=== PATIENT | male | born 1975 | race Caucasian/White ===

== ENCOUNTER 2023-06-06 18:38 | Inpatient (IN) | payer OTHER ==
[~2023-06-06] VITALS: Ht 167.6 cm; Wt 117.9 kg
[~2023-06-06 18:38] MED LIST: ALBU90OI INH; ONDA4ODT MM; OXYACE5T PO; RXONDA4ODT MM
[2023-06-06 19:21] LABS: BASOPHILS ABSOLUTE AUTO 0.09 K/mm3 (0.00-0.23); BASOPHILS PERCENT AUTO 1 % (0-2); EOSINOPHILS ABSOLUTE AUTO 0.36 K/mm3 (0.00-0.68); EOSINOPHILS PERCENT AUTO 2 % (0-6); IMMATURE GRAN ABSOLUTE AUTO 0.11 K/mm3 (0.00-0.10); IMMATURE GRAN PERCENT AUTO 1 % (0-1); LYMPHOCYTES ABSOLUTE AUTO 2.69 K/mm3 (0.84-5.20); LYMPHOCYTES PERCENT AUTO 15 % (21-46); MONOCYTES ABSOLUTE AUTO 0.99 K/mm3 (0.16-1.47); MONOCYTES PERCENT AUTO 5 % (4-13); Mean Corpuscular HGB Conc 34.7 g/dL (31.5-36.5); Mean Corpuscular Volume 92 fL (80-100); NEUTROPHILS ABSOLUTE AUTO 14.09 K/mm3 (1.96-9.15); NEUTROPHILS PERCENT AUTO 77 % (41-73); Platelet Count 259 K/mm3 (150-400); RDW Coefficient Variation 12.7 % (11.7-14.2); Red Blood Cell Count 5.31 M/mm3 (4.30-5.90); White Blood Cell Count 18.33 K/mm3 (4.00-11.30)
[2023-06-06 19:36] LABS: Albumin, Blood 4.1 g/dL (3.4-5.0); Bilirubin, Total 5.3 mg/dL (0.1-1.0); Bun/Creatinine Ratio 11.1 (12.0-20.0); Calcium, Blood 9.4 mg/dL (8.5-10.1); Creatinine, Blood 1.08 mg/dL (0.60-1.20); Potassium, Blood 3.8 mmol/L (3.5-5.5); Total Protein, Blood 8.1 g/dL (6.4-8.2)
--- NOTE | 2023-06-06 23:22 | NUR ---
ADMIT NOTE PT BROUGHT TO UNIT BY GERALD. TRANFERRED TO HOSPITAL BED INDEPENDENTLY. OREIENTED TO CALL LIGHT AND ROOM. EDUCATED ON FIRE PREVENTION AND SAFETY. ONE BAG OF PERSONAL BELONGINGS. GLASSES ON BEDSIDE TABLE. AT BEDSIDE BUT HEADING HOME SOON. CALL LIGHT IN REACH
[2023-06-06 23:35] VITALS: BP 140/95
[2023-06-07 02:14] LABS: BASOPHILS ABSOLUTE AUTO 0.03 K/mm3 (0.00-0.23); BASOPHILS PERCENT AUTO 0 % (0-2); EOSINOPHILS ABSOLUTE AUTO 0.01 K/mm3 (0.00-0.68); EOSINOPHILS PERCENT AUTO 0 % (0-6); Hematocrit 48.3 % (37.0-53.0); Hemoglobin 16.6 g/dL (13.5-17.5); IMMATURE GRAN ABSOLUTE AUTO 0.05 K/mm3 (0.00-0.10); IMMATURE GRAN PERCENT AUTO 0 % (0-1); LYMPHOCYTES ABSOLUTE AUTO 0.48 K/mm3 (0.84-5.20); LYMPHOCYTES PERCENT AUTO 4 % (21-46); MONOCYTES ABSOLUTE AUTO 0.67 K/mm3 (0.16-1.47); MONOCYTES PERCENT AUTO 5 % (4-13); Mean Corpuscular HGB 31.8 pg (26.0-34.0); Mean Corpuscular HGB Conc 34.4 g/dL (31.5-36.5); Mean Corpuscular Volume 93 fL (80-100); Mean Platelet Volume 8.9 fL (9.1-12.4); NEUTROPHILS ABSOLUTE AUTO 12.27 K/mm3 (1.96-9.15); NEUTROPHILS PERCENT AUTO 91 % (41-73); Platelet Count 194 K/mm3 (150-400); RDW Coefficient Variation 12.9 % (11.7-14.2); RDW Standard Deviation 43.5 fL (35.1-46.3); Red Blood Cell Count 5.22 M/mm3 (4.30-5.90); White Blood Cell Count 13.51 K/mm3 (4.00-11.30)
[2023-06-07 02:23] LABS: International Normalized Ratio 1.09; Prothrombin Time Results 11.4 Sec (9.7-11.5)
[2023-06-07 02:26] LABS: CHOL/HDL RATIO 7.2; Cholesterol 186 mg/dL (50-200); HDL Cholesterol 26 mg/dL (>39); LDL/HDL RATIO 4.9; Low Density Lipoprotein Chol 128 mg/dL (0-110); Triglycerides 160 mg/dL (30-160); Very Low Density Lipoprot Chol 32 mg/dL (6-32)
[2023-06-07 02:38] LABS: Albumin, Blood 3.6 g/dL (3.4-5.0); Albumin/Globulin Ratio 0.9 (0.8-1.8); Bilirubin, Total 2.1 mg/dL (0.1-1.0); Bun/Creatinine Ratio 13.5 (12.0-20.0); Calcium, Blood 8.1 mg/dL (8.5-10.1); Creatinine, Blood 0.97 mg/dL (0.60-1.20); Globulin, Blood 3.8 g/dL (2.2-4.0); Potassium, Blood 5.5 mmol/L (3.5-5.5); Total Protein, Blood 7.4 g/dL (6.4-8.2)
--- NOTE | 2023-06-07 03:25 | NUR ---
SHIFT SUMMARY PT A&O X4, COOPERATIVE WITH CARE. AT BEDSIDE AT ADMIT. PT COMPLAINING OF RUQ ABDOMINAL PAIN--MEDICATED PER EMAR. CURRENTLY NPO. FAXED MRI PAPERWORK TO IMAGING. SBA TO BATHROOM DUE TO LINES. CURRENTLY ON 2L VIA NC. NS INFUISING AT 75 ML/HR. MEDICATED FOR NAUSEA. BED KEPT IN LOWEST POSITION WITH CALL LIGHT WITHIN REACH. WILL CONTINUE TO MONITOR UNTIL END OF SHIFT.
--- NOTE | 2023-06-07 04:50 | NUR ---
PT JUST HAD AN EPISODE OG NAUSEA AND VOMITING. ALREADY GAVE NAUSEA MEDS PER EMAR. WILL NOTIFY
[2023-06-07 04:55] VITALS: BP 163/112
[2023-06-07 06:04] VITALS: BP 143/96
[2023-06-07 07:38] VITALS: BP 145/101
[2023-06-07 16:31] VITALS: BP 137/99
--- NOTE | 2023-06-07 17:26 | NUR ---
SHIFT SUMMARY: PT IS A 47 YEAR OLD MALE HERE FOR ACUTE G[place]STONE PANCREATITIS. HE IS HERE RECEIVING PAIN MANAGEMENT, IV FLUIDS, NPO BESIDES FOR WATER AND ICE CHIPS, AND ANTIBIOTICS FOR TREATMENT UNTIL HE IS ABLE TO HAVE SURGERY. SEE SURGICAL CONSULTATION NOTE FOR MORE DETAILS. HE IS PLEASANT AND COOPERATIVE AND INDEPENDENT IN THE ROOM. HE USES HIS CALL LIGHT APPROPRIATELY. HE IS GETTING SUPPLEMENTAL OXYGEN AT 2 LITERS DUE TO OXYGEN DESATURATION WHEN HE FALLS ASLEEP AND IS BEING MONTIOR WITH CONTINUE PULSE OXIMETRY. I DID D/C PATIENT'S OXYGEN TODAY AFTER HE RETURNED FROM MRI, BUT HAD TO PUT IT BACK ON WHEN IT GOT TO 88% WHILE HE WAS SLEEPING. PATIENT'S STATES THAT DECREASED OXYGEN SATURATION IS A KNOWN ISSUE WHEN HE SLEEPS. HE HAS BEEN TOLERATING WATER AND ICE CHIPS ONCE ORDER HAS BEEN PLACED. NO VOMITING THIS AFTERNOON. WHEN PATIENT DOES VOMITING IT IS SMALL AMOUNTS OF BILE. PT REPORTS NO BOWEL MOVEMENTS TODAY.
[2023-06-07 17:41] VITALS: BP 126/96
--- NOTE | 2023-06-07 18:07 | NUR ---
TELEMETRY APPLIED PATIENT RUNNING SINUS TACH AT 130. PATIENT REPORTS PAIN 5/10 WILL ADIMINSTER PAIN MEDICATION
[2023-06-07 20:01] VITALS: BP 129/86
[2023-06-08 03:21] VITALS: BP 130/100
--- NOTE | 2023-06-08 04:33 | NUR ---
SHIFT SUMMARY EV WAS ALERT AND FULLY ORIENTED AT THE START OF SHIFT. HE IS PLEASANT AND COOPERATIVE, WITH FAMILY AT TIME OF ASSESSMENT. PT C/O OF LOWER ABD PAIN AND NAUSEA, MEDICATED PER EMAR. PER SHIFT REPORT PT BECAME TACHICARDIC TOWARDS THE END OF DAY SHIFT AND TELEMETRY WAS INITIATED. PT HOVERS AROUND 140BPM WHILE AWAKE, 110'S-120'S WHILE RESTING AND UP TO 160'S WITH ACTIVITY, PT DENIES C/P/PRESSURE, OR INCREASING SOB, AND STATES THAT HE DOESN'T FEEL LIKE HIS HEART IS RACING. PT RECIEVING 2L O2 VIA NC AND SATTING ABOVE 90%. NO ACUTE EVENTS TONIGHT, PT RESTING IN BED AT A LOW POSITION WITH THE CALL LIGHT IN REACH, WHICH HE USES APPROPRIATELY.
[2023-06-08 05:35] LABS: BASOPHILS PERCENT AUTO 0 % (0-2); EOSINOPHILS PERCENT AUTO 0 % (0-6); Hematocrit 45.5 % (37.0-53.0); Hemoglobin 15.5 g/dL (13.5-17.5); IMMATURE GRAN ABSOLUTE AUTO 0.29 K/mm3 (0.00-0.10); IMMATURE GRAN PERCENT AUTO 1 % (0-1); LYMPHOCYTES ABSOLUTE AUTO 0.65 K/mm3 (0.84-5.20); LYMPHOCYTES PERCENT AUTO 3 % (21-46); MONOCYTES ABSOLUTE AUTO 1.82 K/mm3 (0.16-1.47); MONOCYTES PERCENT AUTO 8 % (4-13); Mean Corpuscular HGB 32.2 pg (26.0-34.0); Mean Corpuscular HGB Conc 34.1 g/dL (31.5-36.5); Mean Corpuscular Volume 94 fL (80-100); Mean Platelet Volume 8.8 fL (9.1-12.4); NEUTROPHILS ABSOLUTE AUTO 21.29 K/mm3 (1.96-9.15); NEUTROPHILS PERCENT AUTO 88 % (41-73); Platelet Count 142 K/mm3 (150-400); RDW Standard Deviation 45.3 fL (35.1-46.3); Red Blood Cell Count 4.82 M/mm3 (4.30-5.90); White Blood Cell Count 24.15 K/mm3 (4.00-11.30)
[2023-06-08 06:32] LABS: Albumin, Blood 2.6 g/dL (3.4-5.0); Albumin/Globulin Ratio 0.8 (0.8-1.8); Bilirubin, Total 8.2 mg/dL (0.1-1.0); Bun/Creatinine Ratio 21.8 (12.0-20.0); Calcium, Blood 7.4 mg/dL (8.5-10.1); Creatinine, Blood 1.24 mg/dL (0.60-1.20); Globulin, Blood 3.3 g/dL (2.2-4.0); Potassium, Blood 4.9 mmol/L (3.5-5.5); Total Protein, Blood 5.9 g/dL (6.4-8.2)
[2023-06-08 07:32] VITALS: BP 145/88
--- NOTE | 2023-06-08 18:53 | NUR ---
SHIFT SUMMARY: PATIENT A/OX4, CALM, PLEASANT, COOPERATIVE c CARE AND USES CALL LIGHT APPROPRIATELY. PATIENT DENIES CP/PRESSURE, SOB, AND DIZZINESS. PATIENT ON TELE ST 110'S-120'S BPM RESTING IN BED c AMBULATIONS GOES UP TO 140'S BPM, DR. LO IS AWARE OF THIS ISSUES. PATIENT PAIN TO LOWER ABDOMEN, WELL CONTROLLED c EMAR PRN PAIN MEDS. PATIENT ON CL DIET AND TOLERATING GOOD, REPORTS OT EPISODE OF NAUSEA BUT NO VOMITING, MEDICATED c PRN NAUSEA MEDS c GREAT EFFECT. PATIENT IS CONTINENCE OF BLADDER AND HAS BEEN AMBULATING TO BATHROOM c SBA AND NO BM THIS SHIFT. VITAL SIGNS REVIEWED. PATIENT RECEIVED IV ABX AND SCHEDULED MEDS PER EMAR. PIV TO LAC INFUSING LR AT 150 MLS/HR. CALL LIGHT IN REACH.
[2023-06-08 20:47] VITALS: BP 145/91
[2023-06-09 02:55] VITALS: BP 144/83
[2023-06-09 05:46] LABS: BASOPHILS ABSOLUTE AUTO 0.04 K/mm3 (0.00-0.23); BASOPHILS PERCENT AUTO 0 % (0-2); EOSINOPHILS ABSOLUTE AUTO 0.02 K/mm3 (0.00-0.68); EOSINOPHILS PERCENT AUTO 0 % (0-6); IMMATURE GRAN PERCENT AUTO 2 % (0-1); LYMPHOCYTES PERCENT AUTO 4 % (21-46); MONOCYTES ABSOLUTE AUTO 1.24 K/mm3 (0.16-1.47); MONOCYTES PERCENT AUTO 8 % (4-13); Mean Corpuscular HGB 31.6 pg (26.0-34.0); Mean Corpuscular HGB Conc 33.3 g/dL (31.5-36.5); Mean Corpuscular Volume 95 fL (80-100); Mean Platelet Volume 9.2 fL (9.1-12.4); NEUTROPHILS ABSOLUTE AUTO 13.83 K/mm3 (1.96-9.15); NEUTROPHILS PERCENT AUTO 86 % (41-73); Platelet Count 114 K/mm3 (150-400); RDW Coefficient Variation 13.1 % (11.7-14.2); RDW Standard Deviation 45.4 fL (35.1-46.3); Red Blood Cell Count 4.12 M/mm3 (4.30-5.90); White Blood Cell Count 16.03 K/mm3 (4.00-11.30)
--- NOTE | 2023-06-09 06:31 | NUR ---
SHIFT SUMMARY: PT IS ADMITTED PANCREATITIS AND IS A FULL CODE. HE IS ALERT AND ABLE TO MAKE NEEDS KNOWN. ADLs ARE 1P STBY MAINLY FOR HELP WITH CONNECTED ITEMS WHILE USING THE BATHROOM. OTHERWISE IS UP AD-MARTA. WAS GIVEN PRN PAIN MANAGEMENT X4 THIS SHIFT. AMANDA REPORTS SINUS TACH @ 117. IV TO LEFT AC IS PATENT AND RUNNING LR @ 150ML/H.
[2023-06-09 06:38] LABS: Albumin, Blood 2.3 g/dL (3.4-5.0); Albumin/Globulin Ratio 0.7 (0.8-1.8); Calcium, Blood 7.5 mg/dL (8.5-10.1); Creatinine, Blood 0.89 mg/dL (0.60-1.20); Globulin, Blood 3.2 g/dL (2.2-4.0); Total Protein, Blood 5.5 g/dL (6.4-8.2)
[2023-06-09 07:31] VITALS: BP 147/88
[2023-06-09 15:07] VITALS: BP 159/93
--- NOTE | 2023-06-09 17:52 | NUR ---
SHIFT SUMMARY PT A&OX4, AMB IND, UPGRADED TO FULL LIQUIDS AND TOLERATING PO, PAIN MANAGED W/ TYLENOL AND TRAMADOL, AND FLUIDS D/C THIS SHIFT. PT HYPERTENSIVE T/O SHIFT AND ADMITTED TO NO BM FOR 4 DAYS, NEW ORDERS GIVEN, AND MEDICATED PER EMAR. NEW IV PLACED IN R HAND. PLAN FOR DISCHARGE HOME AND FOLLOW UP OUTPATIENT TO UNDERGO CHOLECYSTECTOMY. CALL LIGHT IS WITHIN REACH AND PT ABLE TO MAKE NEEDS KNOWN.
[2023-06-09 19:13] VITALS: BP 140/92
[2023-06-10 04:13] VITALS: BP 145/98
--- NOTE | 2023-06-10 04:52 | NUR ---
PROPOSAL WRITER SUMMARY BP ELEVATED, OTHERWISE VSS. RECEIVING ANALGESICS FOR PAIN OF ABD (PANCREATITIS). MEDS EFFECTIVE, BUT PAIN RETURNS FAILRLY QUICKLY AND REQUESTS MORE MEDS - SEE MAR FOR DETAILS. ALERT AND ORIENTED. IV ANTIBIOTICS ADMINISTERED. UP AD MARTA. CONTINENT. HAS BEEN RESTING QUIETLY BETWEEN PAIN MEDS GIVEN. CALL LIGHT IN REACH. WILL CONTINUE TO MONITOR
[2023-06-10 05:44] LABS: BASOPHILS ABSOLUTE AUTO 0.07 K/mm3 (0.00-0.23); BASOPHILS PERCENT AUTO 0 % (0-2); EOSINOPHILS ABSOLUTE AUTO 0.06 K/mm3 (0.00-0.68); EOSINOPHILS PERCENT AUTO 0 % (0-6); Hemoglobin 12.5 g/dL (13.5-17.5); IMMATURE GRAN PERCENT AUTO 1 % (0-1); LYMPHOCYTES ABSOLUTE AUTO 0.61 K/mm3 (0.84-5.20); LYMPHOCYTES PERCENT AUTO 4 % (21-46); MONOCYTES ABSOLUTE AUTO 1.32 K/mm3 (0.16-1.47); MONOCYTES PERCENT AUTO 8 % (4-13); Mean Corpuscular HGB 31.8 pg (26.0-34.0); Mean Corpuscular HGB Conc 33.8 g/dL (31.5-36.5); Mean Corpuscular Volume 94 fL (80-100); Mean Platelet Volume 9.2 fL (9.1-12.4); NEUTROPHILS ABSOLUTE AUTO 13.51 K/mm3 (1.96-9.15); NEUTROPHILS PERCENT AUTO 86 % (41-73); Platelet Count 123 K/mm3 (150-400); RDW Coefficient Variation 13.1 % (11.7-14.2); RDW Standard Deviation 45.1 fL (35.1-46.3); Red Blood Cell Count 3.93 M/mm3 (4.30-5.90); White Blood Cell Count 15.77 K/mm3 (4.00-11.30)
[2023-06-10 05:59] LABS: Albumin, Blood 2.2 g/dL (3.4-5.0); Albumin/Globulin Ratio 0.6 (0.8-1.8); Bilirubin, Total 6.8 mg/dL (0.1-1.0); Bun/Creatinine Ratio 14.2 (12.0-20.0); Calcium, Blood 7.5 mg/dL (8.5-10.1); Creatinine, Blood 0.7 mg/dL (0.60-1.20); Globulin, Blood 3.4 g/dL (2.2-4.0); Total Protein, Blood 5.6 g/dL (6.4-8.2)
[2023-06-10 07:15] VITALS: BP 131/94
[2023-06-10 16:33] VITALS: BP 139/90
--- NOTE | 2023-06-10 16:56 | NUR ---
SHIFT SUMMARY PATIENT IS ALERT AND ORIENTED. PATIENT HAS HAD NO ACUTE EVENTS THIS SHIFT. VITAL SIGNS REVIEWED. PATIENT HAS BEEN TITRATED OFF O2 AND SATTING WELL. PATIENT HAS COMPLAINED OF PAIN AND MEDICATED PER EMAR. PATIENT HAS NOT HAD ANY COMPLAINTS OF SOB, NAUSEA OR VOMITTING THIS SHIFT. PATIENT HAS BEEN IND IN ROOM AND HAS BEEN WITH PT MOST OF DAY. BED IN LOCKED AND LOWEST POSITION. CALL LIGHT IN PLACE. WILL MONITOR UNTIL SHIFT CHANGE.
[2023-06-10 19:42] VITALS: BP 136/88
[2023-06-11 05:12] VITALS: BP 136/83
[2023-06-11 05:33] LABS: BASOPHILS ABSOLUTE AUTO 0.06 K/mm3 (0.00-0.23); BASOPHILS PERCENT AUTO 0 % (0-2); Hematocrit 37.5 % (37.0-53.0); Hemoglobin 12.3 g/dL (13.5-17.5); LYMPHOCYTES ABSOLUTE AUTO 0.79 K/mm3 (0.84-5.20); LYMPHOCYTES PERCENT AUTO 4 % (21-46); MONOCYTES ABSOLUTE AUTO 1.71 K/mm3 (0.16-1.47); MONOCYTES PERCENT AUTO 10 % (4-13); Mean Corpuscular HGB 31.1 pg (26.0-34.0); Mean Corpuscular HGB Conc 32.8 g/dL (31.5-36.5); Mean Corpuscular Volume 95 fL (80-100); Mean Platelet Volume 8.8 fL (9.1-12.4); Platelet Count 136 K/mm3 (150-400); RDW Standard Deviation 45.2 fL (35.1-46.3); Red Blood Cell Count 3.96 M/mm3 (4.30-5.90); White Blood Cell Count 17.92 K/mm3 (4.00-11.30)
[2023-06-11 05:41] LABS: EOSINOPHILS PERCENT AUTO 1 % (0-6); IMMATURE GRAN ABSOLUTE AUTO 0.55 K/mm3 (0.00-0.10); IMMATURE GRAN PERCENT AUTO 3 % (0-1); NEUTROPHILS ABSOLUTE AUTO 14.71 K/mm3 (1.96-9.15); NEUTROPHILS PERCENT AUTO 82 % (41-73)
[2023-06-11 05:49] LABS: Albumin/Globulin Ratio 0.6 (0.8-1.8); Bilirubin, Total 2.8 mg/dL (0.1-1.0); Bun/Creatinine Ratio 15.3 (12.0-20.0); Calcium, Blood 7.6 mg/dL (8.5-10.1); Creatinine, Blood 0.72 mg/dL (0.60-1.20); Globulin, Blood 3.6 g/dL (2.2-4.0); Potassium, Blood 3.9 mmol/L (3.5-5.5); Total Protein, Blood 5.6 g/dL (6.4-8.2)
--- NOTE | 2023-06-11 08:11 | NUR ---
SHIFT SUMMARY PT IS A&OX4, PLEASANT AND APPRECIATIVE. VSS, PT REMAINS TO USE 2L NC T/O SHIFT. TELEMETRY IN PLACE, SR @86 VIA NETWORK SYSTEMS INTEGRATOR. NO ACUTE CHANGES OVER NOC. TOLERATING A FULL LIQUID DIET, MEDICATED ONCE FOR NAUSEA. HIS BIGGEST COMPLAINT IS THAT HE HASN'T HAD A BOWEL MOVEMENT, LACTULOSE GIVEN THIS MORNING. INDEPENDENT TO BR. C/O ABD PAIN ASKING FOR PAIN MEDS Q2, ALWAYS RATES HIS PAIN 2/10. MANAGED WITH PRN'S. BED IN LOWEST POSITION, CALL LIGHT WITHIN REACH. FIRE SAFETY CHECKS COMPLETED
[2023-06-11] MEDS ORDERED: DOCUZEN 8.6-501 EACH PO (13:21)
[2023-06-11] MEDS ORDERED: Acetaminophen650 M1 PO (13:21)
[2023-06-11] MEDS ORDERED: METO25 PO (13:22)
[2023-06-11] MEDS ORDERED: MIRALAX17 GM PO (13:22)
[2023-06-11] MEDS ORDERED: TRAM50 PO (13:23)
[2023-06-11 15:37] VITALS: BP 149/90
--- NOTE | 2023-06-11 18:24 | NUR ---
DISCAHRGE HOME. DISCAHRGE INSTRUCTIONS COMPLETED. IV REMOVED. PRESSURE DRESSING APPLIED. HERE TO TAKE HIM HOME. PT ESCORTED OUT BY W/C. CARE ONGING.
== END 2023-06-11 18:22 | disposition home or self-care (01) | DRG 439 ==
LOC: ER 18:38 → MEDS 22:19
PROVIDERS: Emergency Medicine; Internal Medicine; Surgery; ADMIT Internal Medicine
DX: K85.10 Biliary acute pancreatitis without necrosis or infection (principal); K42.0 Umbilical hernia with obstruction, without gangrene; K80.00 Calculus of gallbladder with acute cholecystitis without obstruction; R65.10 Systemic inflammatory response syndrome (SIRS) of non-infectious origin without acute organ dysfunction; J45.909 Unspecified asthma, uncomplicated; E87.70 Fluid overload, unspecified; R00.0 Tachycardia, unspecified
CPT/HCPCS: 36415; 71045; 74177; 74181; 80053; 80061; 83690; 83880; 84484; 85025; 85610; 93005; 93010; 94761; 94762; 96361; 96374; 96375; 96376; 99285-25; A9270; C9113; J0690; J1170; J1650; J1885; J2405; J3010; J7030; J7050; J7120; Q9967

== ENCOUNTER 2023-07-03 06:21 | Day surgery (SDC) | payer OTHER ==
[~2023-07-03] VITALS: Ht 167.6 cm; Wt 117.0 kg
[2023-07-03] VITALS (9 sets, daily range): BP systolic 122–135; BP diastolic 74–88
[~2023-07-03 06:21] MED LIST changes: +Acetaminophen650 M1 PO; +DOCUZEN 8.6-501 EACH PO; +METO25 PO; +MIRALAX17 GM PO; +TRAM50 PO
--- NOTE | 2023-07-03 07:21 | NUR ---
Ambulatory in Day Surgery. History, Chart, Medications and Allergies reviewed before start of procedure.Patient confirms NPO status and agrees with scheduled surgery.SHOWER Surgical site prepped with 2% Chlorhexidine cloth wipe. Patient States Post-Procedure ride home has been arranged.
--- NOTE | 2023-07-03 09:21 | NUR ---
0916 REPORT RECEIVED FROM PATRICK MORALES. VSS. PT ABLE TO REPOSITION SELF IN BED. PT REQUESTING PO FOOD AND FLUIDS AND TOLERATING THEM WELL. PT DENIES PAIN, NAUSEA OR OTHER DISCOMFORTS AT THIS TIME. PT HAS 3 INCISION SITES ON RIGHT SIDE OF ABDOMEN WITH EXOFEN AND ONE SITE ON BELLY BUTTON WITH GAUZE AND TAPE. ALL DRESSINGS ARE C/D/I WITHOUT DRAINAGE, REDNESS OR SWELLING.
--- NOTE | 2023-07-03 09:56 | NUR ---
Patient up to Ambulate independently. Gait steady. VSS AND CONSISTENT WITH PT BASELINE. PT VERBALIZES READINESS TO GO HOME. Discharge instructions reviewed with patient AND PT . Patient AND HIS verbalize understanding. Copy given to patient to take home. Dressing to procedure site clean, dry, intact with no visible drainage, swelling, erythema or bruising noted. Patient States Post-Procedure ride home has been arranged. Discharged via wheelchair to private car for ride home. PT BELONGINGS RETURNED TO PT.
== END 2023-07-03 10:08 | disposition home or self-care (01) ==
LOC: ORSCMMR 06:21 → ORD 10:15
PROVIDERS: Surgery
PROC: 0WQF0ZZ Repair Abdominal Wall, Open Approach (ICD-10-PCS; principal; 2023-07-03 07:30)
PROC: BF031ZZ Plain Radiography of Gallbladder and Bile Ducts using Low Osmolar Contrast (ICD-10-PCS; principal; 2023-07-03 07:30)
PROC: 0FT44ZZ Resection of Gallbladder, Percutaneous Endoscopic Approach (ICD-10-PCS; principal; 2023-07-03 07:30)
DX: K80.10 Calculus of gallbladder with chronic cholecystitis without obstruction (principal); K42.0 Umbilical hernia with obstruction, without gangrene; E66.01 Morbid (severe) obesity due to excess calories; Z68.41 Body mass index [BMI] 40.0-44.9, adult; Z79.899 Other long term (current) drug therapy
CPT/HCPCS: 74300; 88304; A9270; C1729; J0690; J1100; J1885; J2250; J2405; J2704; J2710; J3010; J7120